=== PATIENT | female | born 1990 | race Caucasian/White ===

== ENCOUNTER → 2023-05-14 | Outpatient (CLI) | payer SELFPAY ==
[~2023-05-14] MED LIST: BIRTH CONTROL PILLS; CELEXA 20MG20 MG/TAB PO; EFFEXOR-XR150 MG PO; LORTAB 5/500 501 TAB PO; MICROGESTIN 1/21 TAB PO; MOTRIN 800800 MG/TAB PO; NKA; NO HOME MEDICATIONS; NORCO 325 MG-51 TAB PO; NORCO 325 MG-7.1 TAB PO; PROMETHAZINE12.5 M5 PO; PROTONIX 40MG T40 MG PO; ZOFRAN 4MG T4 MG/TAB PO
== END ==
LOC: WSC 15:24
DX: M54.41 Lumbago with sciatica, right side (principal); M54.6 Pain in thoracic spine; M54.2 Cervicalgia; G89.29 Other chronic pain

== ENCOUNTER 2023-05-30 16:15 | Outpatient (RCR) | payer OTHER | END 2023-06-01 | disposition home or self-care (01) | LOC: WSPT | DX: M54.41 Lumbago with sciatica, right side (principal); M54.6 Pain in thoracic spine; M54.2 Cervicalgia; G89.29 Other chronic pain ==

== ENCOUNTER → 2023-06-23 | Outpatient (CLI) | payer OTHER | LOC: COL.RAD 08:26 | DX: M47.22 Other spondylosis with radiculopathy, cervical region (principal); M48.02 Spinal stenosis, cervical region; M47.26 Other spondylosis with radiculopathy, lumbar region ==

== ENCOUNTER 2023-08-21 10:30 | Outpatient (RCR) | payer OTHER | END 2023-08-31 | LOC: WSPT | DX: M54.2 Cervicalgia (principal); M54.6 Pain in thoracic spine; M54.50 Low back pain, unspecified ==

== ENCOUNTER → 2023-09-23 | Outpatient (CLI) | payer OTHER | LOC: MHCPAIN 09:07 | DX: M47.816 Spondylosis without myelopathy or radiculopathy, lumbar region (principal); M47.812 Spondylosis without myelopathy or radiculopathy, cervical region; M48.02 Spinal stenosis, cervical region; M79.2 Neuralgia and neuritis, unspecified | CPT/HCPCS: G0463 ==

== ENCOUNTER → 2023-10-01 | Outpatient (RCR) | payer OTHER | END | disposition home or self-care (01) | LOC: WSPT | DX: M54.2 Cervicalgia (principal); M54.6 Pain in thoracic spine; M54.50 Low back pain, unspecified ==

== ENCOUNTER → 2023-10-09 | Outpatient (CLI) | payer OTHER | LOC: MHCPAIN 08:31 | DX: M47.817 Spondylosis without myelopathy or radiculopathy, lumbosacral region (principal); M54.50 Low back pain, unspecified | CPT/HCPCS: J0665 ==

== ENCOUNTER → 2023-10-15 | Outpatient (CLI) | payer OTHER | LOC: MHCPAIN 09:31 | DX: M47.816 Spondylosis without myelopathy or radiculopathy, lumbar region (principal); M47.812 Spondylosis without myelopathy or radiculopathy, cervical region; M48.02 Spinal stenosis, cervical region; M54.2 Cervicalgia; M54.50 Low back pain, unspecified | CPT/HCPCS: G0463 ==

== ENCOUNTER 2023-10-29 10:30 | Outpatient (RCR) | payer OTHER | END 2023-11-01 | disposition home or self-care (01) | LOC: WSPT | DX: M54.2 Cervicalgia (principal); M54.6 Pain in thoracic spine; M54.50 Low back pain, unspecified ==